=== PATIENT | male | born 1980 | race Caucasian/White ===

== ENCOUNTER → 2016-07-29 | Outpatient (CLI) | payer OTHER ==
[2016-07-29 16:34] LABS: SEMEN TIME OF COLLECTION 1455
[2016-07-29 16:35] LABS: DAYS OF ABSTINENCE 3; METHOD OF COLLECTION MASTURBATION; SEMEN COLOR GRAY OR GRAY-WHITE (GRY/GRYWHTE); TYPE OF SPECIMEN CONTAINER STERILE CUP
[2016-07-29 16:37] LABS: SPERM VIABILITY STAIN NOT INDICATED % (>58%)
[2016-07-29 17:21] LABS: PROLACTIN 4.67 ng/mL
== END | disposition home or self-care (01) ==
LOC: C.LAB 15:48
PROVIDERS: ATTEND Urology
DX: N46.9 Male infertility, unspecified (principal)